=== PATIENT | male | born 1955 | race Caucasian/White ===

== ENCOUNTER 2017-02-11 17:19 | Emergency (ER) | payer BC ==
[~2017-02-11] VITALS: Ht 177.8 cm; Wt 83.9 kg
--- NOTE | 2017-02-11 17:19 | NUR ---
GEOVANNA OWENS FROM HOME, FOUND BY DAUGHTER ON THE FLOOR "SLEEPING" AFTER HE HEARD A LOUD BANG ON THE FLOOR, ADMIT TO DRINKING ALCOHOL EVERYDAY, STRONG ETOH BREATH NOTED, DIRECTED TO ER BED 5, MONITORED, DAUGHTER AT BEDSIDE
[2017-02-11] MEDS ORDERED: CAN'T RECALL (17:33)
[2017-02-11 17:53] LABS: BASOPHILS # (AUTO) 0.1 /CMM (0.0-0.2); BASOPHILS % (AUTO) 0.9 % (0.0-2.0); EOSINOPHILS # (AUTO) 0.4 /CMM (0.0-0.7); EOSINOPHILS % (AUTO) 3.8 % (0.0-6.0); HEMATOCRIT 43 % (39-51); HEMOGLOBIN 14.4 g/dL (13.5-17.5); LYMPHOCYTES # (AUTO) 4.3 /CMM (0.8-4.8); LYMPHOCYTES % (AUTO) 36.1 % (20.0-44.0); MEAN CORPUSCULAR HEMOGLOBIN 31 PG (26.0-33.0); MEAN CORPUSCULAR HGB CONC 34 g/dl (31.0-36.0); MEAN CORPUSCULAR VOLUME 92 fL (80-96); MONOCYTES # (AUTO) 0.9 /CMM (0.1-1.30); MONOCYTES % (AUTO) 7.4 % (2.0-12.0); NEUTROPHILS # (AUTO) 6.1 /CMM (1.8-8.9); NEUTROPHILS % (AUTO) 51.8 % (43.0-81.0); PLATELET COUNT (AUTO) 153 /CMM (150-450); WHITE BLOOD COUNT (AUTO) 11.8 K/uL (4.3-11.0)
[2017-02-11] MEDS ORDERED: IV NS 0.9% 500 ML IV ONE (18:00)
[2017-02-11] MEDS ORDERED: IV SET PRIMARY PUMP SET 1 EA INFUS.SET MC ONE (18:00)
[2017-02-11 18:03] LABS: CALCIUM, SERUM 9.2 mg/dL (8.5-10.1); CARBON DIOXIDE 27 mmol/L (21-32); CHLORIDE 107 mmol/L (98-107); GFR 76 mL/min (>60); GLUCOSE 97 mg/dL (74-106); POTASSIUM 3.7 mmol/L (3.5-5.1); SODIUM SERUM 142 mmol/L (136-145); UREA NITROGEN, BLOOD 15 mg/dL (7-18)
[2017-02-11] MEDS: IV NS 0.9% 500 ML BAG IV ONE (18:06)
[2017-02-11 18:08] LABS: ALANINE AMINOTRANSFERASE 19 U/L (12-78); ALBUMIN 3.3 g/dL (3.4-5.0); ALKALINE PHOSPHATASE 36 U/L (46-116); ASPARTATE AMINOTRANSFERASE 15 U/L (15-37); BILIRUBIN,DIRECT 0.1 mg/dL (0.0-0.2); BILIRUBIN,TOTAL 0.3 mg/dL (0.2-1.0); TOTAL PROTEIN, SERUM 6.5 g/dL (6.4-8.2)
[2017-02-11 18:10] LABS: TROPONIN I < 0.017 ng/mL (0.00-0.056)
--- NOTE | 2017-02-11 18:13 | NUR ---
SEEN BY DR SPAIN, IVF STARTED ORDERED
--- NOTE | 2017-02-11 18:20 | NUR ---
CALLED NURSING SUP. FOR TELE BED
[2017-02-11 18:27] LABS: INR 1.06 (0.87-1.13)
[2017-02-11] MEDS ORDERED: CT SWABBABLE VALVE TRANS SET 1 EA INFUS.SET MC ONE (18:50)
[2017-02-11] MEDS ORDERED: IV NS 0.9% 250 ML IV ONE (18:50)
[2017-02-11] MEDS ORDERED: IOHEXOL-350 100 ML VIAL IV ONE (18:50)
--- NOTE | 2017-02-11 19:28 | NUR ---
DR SPAIN AT BEDSIDE FOR REEVAL
--- NOTE | 2017-02-11 19:36 | NUR ---
GAVE REPORT TO ROSETTE MERCADO FOR NICOLE
--- NOTE | 2017-02-11 20:36 | NUR ---
Patient does not wish to proceed with medical care recommended by Dr. SPAIN. Patient given information related to possible complications, up to and including , which could occur as a result of leaving the hospital at this time. Patient verbalizes understanding of risks involved due to leaving against medical advice. Patient has signed AMA form. IV removed. Catheter intact and site benign. Pressure and 4x4 applied to site. No bleeding noted.
[2017-02-11 20:37] VITALS: BP 110/69
== END 2017-02-11 20:38 | disposition left against medical advice (07) ==
LOC: ER 17:20
DX: R55 Syncope and collapse (principal); F10.129 Alcohol abuse with intoxication, unspecified; D72.829 Elevated white blood cell count, unspecified; I10 Essential (primary) hypertension; F17.200 Nicotine dependence, unspecified, uncomplicated
CPT/HCPCS: 36415; 71010-TC; 80048-TC; 80076-TC; 84484-TC; 85025-TC; 85730-TC; A4606; G0480; J7040; J7050; Q9967; Z7610